=== PATIENT | male | born 1955 | race Two or more races ===

== ENCOUNTER 2016-09-09 08:56 | Outpatient (CLI) | payer MEDICARE, MEDICAID ==
[~2016-09-09 08:56] MED LIST: AMLODIPINE BESY10 MG ORAL; ASPIRIN EC81 MG ORAL; ATORVASTATIN CA40 MG ORAL; BP med; CARVEDILOL6.25 MG ORAL; FERROUS SULFAT325 MG ORAL; FISH OIL500 M2 PO; FOSRENOL1000 MG PO; ISOSORBIDE DINIT5 MG ORAL; LANTUS SOL100 UNIT/1 SUBQ; LINZESS145 MCG PO; NITROGLYCERIN0.4 MG SL; NOVOLOG100 UNIT/3 SUBQ; NOVOLOG100 UNIT/4 SQ; PLAVIX75 MG ORAL; RENA-VITE TABL0.8 M1 PO; SENSIPAR30 MG ORAL; SUPER B COMPLE1 EACH PO; VITAMIN D31000 UNI1 PO; cholesterol med
--- NOTE | 2016-09-09 17:36 | GI Progress Note ---
Assessment/Plan Problems: (1) IBS (irritable bowel syndrome) ICD Codes: K58.9 - Irritable bowel syndrome without diarrhea SNOMED: 23098078, 13057871 (2) Constipation ICD Codes: K59.00 - Constipation SNOMED: 76539053 (3) HP positive gastritis (4) Small intestinal bacterial overgrowth ICD Codes: K63.89 - Other specified diseases of intestine SNOMED: 334118088 Status: stable Status Narrative Seen with Dr. Ritter. Assessment/Plan Rx linzess Rx Xifaxan s/p Tx for HP RTC x 3 months for HP BT Subjective Subjective abdominal bloating and distention Objective T 98.6 BP 128/68 P 64 97 RA General Appearance: no apparent distress, alert Cardiovascular: normal rate Respiratory/Chest: normal breath sounds, no respiratory distress Abdominal Exam: distended Extremities: normal range of motion Abiola Guillory N.P. Sep 09, 2016 17:36
== END 2016-09-09 09:45 | disposition home or self-care (01) ==
LOC: PAN 08:56
DX: K58.9 Irritable bowel syndrome, unspecified (principal); K59.00 Constipation, unspecified; A04.8 Other specified bacterial intestinal infections; K29.70 Gastritis, unspecified, without bleeding
CPT/HCPCS: 99211

== ENCOUNTER 2016-10-30 12:45 | Outpatient (CLI) | payer MEDICARE, MEDICAID ==
--- NOTE | 2016-10-30 14:37 | GI Progress Note ---
Assessment/Plan Problems: (1) Small intestinal bacterial overgrowth ICD Codes: K63.89 - Other specified diseases of intestine SNOMED: 746322503 (2) IBS (irritable bowel syndrome) ICD Codes: K58.9 - Irritable bowel syndrome without diarrhea SNOMED: 07554715, 15244115 (3) Constipation ICD Codes: K59.00 - Constipation SNOMED: 86235004 (4) Esophagitis ICD Codes: K20.9 - Esophagitis, unspecified SNOMED: 51996456 (5) HP positive gastritis (6) HTN (hypertension) ICD Codes: I10 - HTN (hypertension) SNOMED: 42321227 Status: stable Status Narrative Seen with . Assessment/Plan Rx Xifaxan RTC x 1 month for repeat HP BT Subjective Subjective abdominal pain RUQ, especially when sleepy s/p TX HP, needs repeat x 1 month abdominal bloating after eating Objective T 98.1 BP 124/71 P 69 97 RA weight gain General Appearance: no apparent distress, alert Cardiovascular: normal rate Respiratory/Chest: normal breath sounds, no respiratory distress Abdominal Exam: normal bowel sounds, non tender, soft, distended Extremities: normal range of motion Abiola Guillory N.P. Oct 30, 2016 14:36
== END 2016-10-30 13:45 | disposition home or self-care (01) ==
LOC: PAN 12:45
DX: K58.9 Irritable bowel syndrome, unspecified (principal); A04.8 Other specified bacterial intestinal infections; K59.00 Constipation, unspecified; K20.9 Esophagitis, unspecified; K29.70 Gastritis, unspecified, without bleeding; I10 Essential (primary) hypertension
CPT/HCPCS: 99211